=== PATIENT | female | born 1960 | race Caucasian/White ===

== ENCOUNTER 2024-11-07 06:40 | Day surgery (SDC) | payer BC, OTHER ==
[2024-11-06 10:06] LABS: Absolute Eosinophils 0.2 K/uL (0-0.5); Absolute Lymphocytes (CBC) 1.7 K/uL (0.7-4.9); Absolute Monocytes 0.4 K/uL (0.1-1.3); Basophils % 0.7 % (0-1.3); Eosinophils % 3.8 % (0-4.4); Hematocrit 40.9 % (36.0-45.0); Hemoglobin 13.7 g/dL (12.0-15.0); Lymphocytes % 32.3 % (15.3-44.8); MCH 29.2 pg (27.0-35.0); MCHC 33.5 g/dL (32.0-36.0); MCV 87.1 fL (80-100); MPV 6.8 fL (7.6-11.3); Monocytes % 6.9 % (3.3-12.3); Neutrophils % 56.3 % (41.7-73.7); Nucleated Red Blood Cells % 0.4 % (0-0); Platelets 246 thou/uL (152-406); Red Cell Distribution Width 13.5 % (12.1-15.2)
[2024-11-06 10:08] LABS: PT Prothrombin Time 10.9 SECONDS (9.4-12.5); PTT, Activated Partial Thromb 35.9 SECONDS (24.3-36.9); Protime INR 0.97
[2024-11-06 10:15] LABS: Anion Gap 7.1 mEq/L (5.0-15.0); Potassium 4.1 mEq/L (3.5-5.1)
--- NOTE | 2024-11-06 12:16 | RAD REPORT ---
EXAMINATION: TWO VIEW CHEST XR CLINICAL INDICATION: Female, 64 years old. [facility] Pre-op pending heart cath TECHNIQUE: 2 view radiographs of the chest were performed. COMPARISON: 12/14/2017 FINDINGS: The lungs are well inflated and clear. No pneumothorax or sizable effusion. The heart is normal in si ze. Mediastinal contours are unchanged with sequelae of median sternotomy again seen. IMPRESSION: No acute or significant abnormalities.
[2024-11-07] MEDS ORDERED: NA CHLORIDE 0.9% 500 ML ONE (06:41)
[2024-11-07] MEDS ORDERED: NITROGLYCERIN/D5W 50 MG/250 ML BTL IV ONE (06:48)
[2024-11-07] MEDS ORDERED: HEPARIN 10,000 UNIT/10 ML VIAL IV ONE (06:48)
[2024-11-07] MEDS ORDERED: HEPA 1000U/500MLS 3,000 UNIT/1,500 ML BAG IV ONE (06:48)
[2024-11-07] MEDS ORDERED: MIDAZOLAM HCL 2 MG/2 ML INJ ONE (06:49)
[2024-11-07] MEDS ORDERED: ATROPINE SULF 1 MG/10 ML SYR IV ONE (06:49)
[2024-11-07] MEDS ORDERED: LIDOCAINE 1% 20 ML MDV ONE (06:49)
[2024-11-07] MEDS ORDERED: HEPARIN 5000 UNIT/ML 1 ML VIAL ONE (06:50)
[2024-11-07] MEDS ORDERED: CLOPIDOGREL 75 MG TABLET ONE (06:51)
[2024-11-07] MEDS ORDERED: FENTANYL CITR 100 MCG/2 ML ONE (06:51)
[2024-11-07] MEDS ORDERED: ASPIRIN 325 MG TAB ONE (06:52)
[2024-11-07] MEDS ORDERED: TICAGRELOR 90 MG TABLET PO ONE (06:52)
[2024-11-07] MEDS ORDERED: VERAPAMIL HCL 10 MG/4 ML VIAL IV ONE (07:15)
[2024-11-07 08:36] VITALS: TEMP 97.9
--- NOTE | 2024-11-07 09:02 | OP ---
Date of Procedure: 11/07/2024 Surgeon: ROBIN CHOI Procedure Performed: Selective coronary angiogram. Indication: Chest pain, abnormal stress test. Access: Right radial artery, 6-Serbian, closed with TR band. Complications: None. Bleeding: Less than 50 mL. Total Sedation Time: 45 minutes. Used fentanyl and Versed. Description Of Procedure: After risks, benefits, and alternatives were explained, the patient agreed to procedure and signed informed consent. The [facility], prepped and draped in sterile fashion. Then, I accessed right radial artery using pediatric micropuncture kit, placed 6-Serbian slender sheath and took 5-Serbian [place] 4 catheter over the wire in to the aortic root, engaged left main and right coronary artery, took standard views. Catheter was p ushed over the wire into the LV and pullback did not record any gradient, and then removed the cathet er and the sheath, placed TR band with good hemostasis. Findings: 1.Left main is normal. 2.LAD: Proximal segment is normal. Mid segment has diffuse 30% to 40% stenosis. Rest of LAD is no rmal. Normal diagonal branches. 3.Left circumflex: It is large and codominant, and normal. 4.RCA: Codominant circulation with mid 40% stenosis. Conclusion: Moderate coronary artery disease. Recommendation: Medical management. SR/MODL Voice ID: [id number] Report ID: [id number]
[2024-11-07 10:24] VITALS: O2SAT 95
[2024-11-07 10:44] VITALS: BP 116/57
--- NOTE | 2024-11-11 11:00 | EKG ---
Test Date: 2024-11-06 Test Time: 10:53:12 [employer] Commodities Inspector: BONNIE MEASUREMENT RESULTS: Intervals: Rate: 50 FL: 140 QRSD: 164 QT: 450 QTc: 410 [place]: P: 59 FL: 140 QRS: 58 T: 57 INTERPRETIVE STATEMENTS: Sinus bradycardia Right bundle branch block Abnormal ECG No previous ECG available for comparison Electronically Signed On 11-11-24 10:54:00 GEAR CUTTING MACHINE SET UP OPERATOR by Dallas Zacarias
== END 2024-11-07 10:50 | disposition home or self-care (01) ==
LOC: CCL 06:40
PROVIDERS: ATTEND Internal Medicine
DX: I25.10 Atherosclerotic heart disease of native coronary artery without angina pectoris (principal); I34.0 Nonrheumatic mitral (valve) insufficiency; I71.21 Aneurysm of the ascending aorta, without rupture; I10 Essential (primary) hypertension; I45.10 Unspecified right bundle-branch block; E78.2 Mixed hyperlipidemia; F17.210 Nicotine dependence, cigarettes, uncomplicated; Z79.82 Long term (current) use of aspirin; Z79.899 Other long term (current) drug therapy; Z88.8 Allergy status to other drugs, medicaments and biological substances; Z82.49 Family history of ischemic heart disease and other diseases of the circulatory system
CPT/HCPCS: 36415; 71046; 76937; 80048; 85025; 85610; 85730; 93005; 93454; 99152; 99153; C1893; J0461; J1644; J2003; J2250; J3010; J7040; Q9967